=== PATIENT | male | born 1995 | race Caucasian/White ===

== ENCOUNTER 2025-02-03 15:48 | Emergency (ER) | payer OTHER ==
[2025-02-03] MEDS: Tetracaine HCl/PF 0.5% 4 ML Bottle EYEBOTH ONE (16:00)
== END 2025-02-03 16:20 | disposition home or self-care (01) ==
LOC: LL.ED 15:48
DX: T15.91XA Foreign body on external eye, part unspecified, right eye, initial encounter (principal); Z79.899 Other long term (current) drug therapy; Z87.891 Personal history of nicotine dependence; W44.8XXA Other foreign body entering into or through a natural orifice, initial encounter; Y93.89 Activity, other specified
CPT/HCPCS: 65205; 99283-25; J3490